=== PATIENT | female | born 1965 | race Caucasian/White ===

== ENCOUNTER 2020-07-12 21:35 | Emergency (ER) | payer BC ==
[2020-07-12] MEDS ORDERED: Tetracaine HCl/PF 0.5% 4 ML Bottle ONE (22:09)
[2020-07-12] MEDS ORDERED: Tetracaine HCl/PF 0.5% 4 ML Bottle OP ONE (22:11)
[2020-07-12] MEDS ORDERED: Erythromycin Base 0.5% Ophth Oint 1 GM Tube ONE (22:20)
[2020-07-12] MEDS ORDERED: Erythromycin Base 0.5% Ophth Oint 1 GM Tube EYEBOTH ONE (22:20)
--- NOTE | 2020-07-12 22:26 | EDM.PDOC ---
ED HPI GENERAL MEDICAL PROBLEM - General Chief Complaint: Eye Problems Stated Complaint: SOMETHING STUCK IN LT EYE Time Seen by Provider: 07/12/20 21:55 - History of Present Illness INITIAL COMMENTS - FREE TEXT/NARRATIVE: HISTORY AND PHYSICAL: History of present illness: This is a 55-year-old female who presents ER today secondary to foreign body sensation identified to her left eye. Patient's reports he is able to v isualize a foreign body at approximately the 5 o'clock position in her left iris. Patient denies any change in vision. Patient denies any recent fevers, shakes, chills, nausea, vomiting, diarrhea. Patient reports that she was just walking outside when she felt something fly into her eye and has been having pain and discomfort since. Review of systems: As per history of present illness and below otherwise all systems reviewed and negative. Past medical history: As per history of present illness and as reviewed below otherwise noncontributory. Surgical history: As per history of present illness and as reviewed below otherwise noncontributory. Social history: No reported history of drug or alcohol abuse. Family history: As per history of present illness and as reviewed below otherwise noncontributory. Physical exam: This patient was seen and evaluated during the 2019 SARS-CoV-2 novel coronavirus pandemic period. Community viral transmission is ongoing at time of this enc nter and the emergency department is operating under pandemic response procedures. Constitutional: Patient is oriented to person, place, and time. Appears well- developed and well-nourished. No distress. HEENT: Moist mucous membranes Head: Normocephalic and atraumatic Eyes: Right eye exhibits no discharge. Left eye exhibits no discharge. No scleral icterus Neck: Normal range of motion. No tracheal deviation present. Cardiovascular: Normal rate and regular rhythm. Pulmonary: Effort normal, no respiratory distress. Abdominal: No distention Musculoskeletal: Normal range of motion Neurologic: Alert and oriented to person, place and time. Skin: [place], warm and dry. Psychiatric: Normal mood and affect. Behavior is normal. Judgment and thought content normal. Nursing note and vital signs have been reviewed LIDS & LASHES: Normal. PUPILS: Pupils equal and reactive. EOM's: Intact. LID EVERSION: No foreign body. CONJUNCTIVAE: No conjunctival injection CORNEA: Foreign body identified at the 5 o'clock position left iris. ANTERIOR CHAMBER: No foreign body, No tear in iris,No hyphema Diagnostics: Utilizing a slit lamp a foreign body was identified at approximately 5 o'clock position in her left iris. Visual acuity noted Therapeutics: 3 drops of tetracaine were instilled into her left eye with complete relief in her pain and discomfort. Utilizing an 18-gauge curved needle, the foreign body was easily removed and scraped off the cornea. Patient tolerated procedure well. Assessment and plan: 55-year-old female who presents ER today with foreign body to her left iris. Foreign body has been removed. Patient be started on erythromycin ointment to be taken twice a day for 3 days. Patient will be expected to follow-up with her eye doctor as needed. Patient is declining tetanus shot. Patient is unsure when her last tetanus shot was. Patient will be instructed to take ibuprofen 600 mg as needed for pain. Definitive disposition and diagnosis as appropriate pending reevaluation and review of above. Left Eye Pain Score (Numeric/FACES): 1 - Related Data Allergies Allergy/AdvReac Type Severity Reaction Status Date / Time No Known Allergies Allergy Verified 07/12/20 21:46 Home Meds: Home Meds . [No Known Home Meds] 07/12/20 [History] Past Medical History - Past Health History Medical/Surgical History: Denies Medical/Surgical History - Infectious Disease History Infectious Disease History: Reports: None Social & Family History - Tobacco Use Tobacco Use Status *Q: Never Tobacco User - Caffeine Use Caffeine Use: Reports: None - Recreational Drug Use Recreational Drug Use: No ED ROS GENERAL - Review of Systems Review Of Systems: See Below ED EXAM GENERAL W FULL EYE - Physical Exam Exam: See Below Course - Vital Signs Last Recorded V/S: Last Vital Signs Temp 97 F 07/12/20 21:47 Pulse 82 07/12/20 21:47 Resp 16 07/12/20 21:47 BP 129/84 07/12/20 21:47 Pulse Ox 97 07/12/20 21:47 - Orders/Labs/Meds Meds: Medications Discontinued Medications Generic Name Dose Route Start Last Admin Trade Name Freq PRN Reason Stop Dose Admin Erythromycin 1 gm 07/12/20 22:20 07/12/20 22:21 Erythromycin Base 0.5% Ophth Oint 1 Gm Tube EYEBOTH 07/12/20 22:21 1 applic ONETIME ONE Administration Erythromycin Confirm 07/12/20 22:20 07/12/20 22:23 Erythromycin Base 0.5% Ophth Oint 1 Gm Tube Administered 07/12/20 22:21 Not Given Dose 1 gm .ROUTE .STK-MED ONE Tetracaine HCl 1 ml 07/12/20 22:11 07/12/20 22:14 Tetracaine Hcl/Pf 0.5% 4 Ml Bottle OP 07/12/20 22:12 1 applic ASDIRECTED ONE Administration Tetracaine HCl Confirm 07/12/20 22:09 07/12/20 22:14 Tetracaine Hcl/Pf 0.5% 4 Ml Bottle Administered 07/12/20 22:10 Not Given Dose 4 ml .ROUTE .STK-MED ONE Departure - Departure Time of Disposition: 22:23 Disposition: Home, Self-Care 01 Condition: Good Clinical Impression: Foreign body of left eye Qualifiers: Encounter type: initial encounter Qualified Code(s): T15.92XA - Foreign body on external eye, part unspecified, left eye, initial encounter - Discharge Information Instructions: Eye Foreign Body, [id number] Referrals: PCP,None [Primary Care Provider] - Forms: ED Department Discharge Additional Instructions: You have been seen and evaluated in the ER today secondary to foreign body to your left eyeball. The foreign body has been successfully removed. You will be given erythromycin ointment to apply twice a day for 3 days. Please make an appointment to see your eye doctor if you have any redness, swelling, pain, change in vision or other new or concerning symptoms. Please talk to your family doctor about options regarding your tetanus status. The following information is given to patients seen in the emergency department who are being discharged to home. This information is to outline your options for follow-up care. We provide all patients seen in our emergency department with a follow-up referral. The need for follow-up, as well as the timing and circumstances, are variable depending upon the specifics of your emergency department visit. If you don't have a primary care physician on staff, we will provide you with a referral. We always advise you to contact your personal physician following an emergency department visit to inform them of the circumstance of the visit and for follow-up with them and/or the need for any referrals to a consulting specialist. The emergency department will also refer you to a specialist when appropriate. This referral assures that you have the opportunity for follow-up care with a specialist. All of these measure are taken in an effort to provide you with optimal care, which includes your follow-up. Under all circumstances we always encourage you to contact your private physician who remains a resource for coordinating your care. When calling for follow-up care, please make the office aware that this follow-up is from your recent emergency room visit. If for any reason you are refused follow-up, please contact the [facility] Emergency Department at and asked to speak to the emergency department charge nurse. [facility] - [facility] [address] [place] [id number] [facility] [address] [place] [id number] Sepsis Event Note (ED) - Evaluation Sepsis Screening Result: No Definite Risk - Focused Exam Vital Signs: Vital Signs Temp Pulse Resp BP Pulse Ox 07/12/20 21:47 97 F 82 16 129/84 97
== END 2020-07-12 22:33 | disposition home or self-care (01) ==
LOC: MW.ED 21:35
DX: T15.92XA Foreign body on external eye, part unspecified, left eye, initial encounter (principal)
CPT/HCPCS: 65220; 99283; A9270